=== PATIENT | female | born 1980 | race Hispanic/Latino ===

== ENCOUNTER 2024-01-02 11:02 | Inpatient (IN) | payer SELFPAY ==
[2024-01-02 11:41] LABS: #Basophils 0.03 10x3/uL (0.0-0.2); %Basophils 0.5 % (0.0-1.0); %Eosinophils 0.6 % (0.0-10.0); %Lymphocytes 14.3 % (21.0-51.0); %Monocytes 7.8 % (0.0-10.0); %Neutrophils 76.5 % (42.0-75.0); Hematocrit 27.9 % (36.0-47.0); Hemoglobin 8.4 g/dL (12.0-16.0); Mean Corpuscular HGB CONC 30.1 g/dL (32.0-36.0); Mean Corpuscular Hemoglobin 22.6 pg (27.0-31.0); Mean Platelet Volume 10.6 fL (7.4-10.4); Platelet Count 206 10x3/uL (130-400); RBC Distribution Width 16.4 % (11.5-14.5); Red Blood Cell (RBC) Count 3.72 mill/uL (4.20-5.40)
[2024-01-02 11:50] LABS: BHCG - Serum Negative (NEGATIVE); Pregs Control Background? CLEAR/WHITE (CLR/WHITE); Pregs Control Bar Appear? YES (CONTROL BAR)
[2024-01-02 11:57] LABS: ALT (SGPT) 36 U/L (8-55); AST (SGOT) 35 U/L (5-34); Albumin 3.8 g/dL (3.5-5.0); Alkaline Phosphatase 63 U/L (40-110); Anion Gap 10 mmol/L (10-20); BUN (Urea Nitrogen) 11 mg/dL (7.0-18.7); Bilirubin, Total 0.8 mg/dL (0.2-1.2); Calc. Creatinine Clearance 0 mL/min (70-130); Calcium 8.6 mg/dL (7.8-10.44); Carbon Dioxide 23 mmol/L (22-29); Chloride 107 mmol/L (98-107); Estimated GFR 112; Globulin 2.9 g/dL (2.4-3.5); Glucose 134 mg/dL (70-105); Potassium 3.4 mmol/L (3.5-5.1); Protein, Total 6.7 g/dL (6.0-8.3); Sodium 137 mmol/L (136-145)
[2024-01-02 12:32] LABS: Troponin I 0.784 ng/mL (< 0.028)
[2024-01-02] MEDS ORDERED: Boostrix 0.5 ML (Tdap) VIAL (>/=7 yrs of age) ONE (12:57)
[2024-01-02] MEDS ORDERED: Aspirin Chewable 81 MG TAB ONE (12:57)
[2024-01-02] MEDS ORDERED: Enoxaparin 80 MG (0.8 mL) SYRINGE ONE (13:29)
[2024-01-02] MEDS ORDERED: Ibuprofen 200 MG TAB PO PRN (14:08)
[2024-01-02] MEDS ORDERED: Senokot S 8.6-50 MG TAB PO PRN (14:08)
[2024-01-02 14:37] LABS: Cardiac Risk 3.3 (Less than 4.5)
[2024-01-02] MEDS ORDERED: Iron Sucrose Complex 200 MG in Sodium Chloride 0.9% 100 ML IVPB SCH (16:00)
[2024-01-02 16:51] VITALS: BMI 28.7
[2024-01-02 16:53] LABS: Troponin I 0.704 ng/mL (< 0.028)
[2024-01-02] MEDS: Sodium Chloride 0.9% 1,000 ML IV SCH (17:05)
[2024-01-02] MEDS: Carvedilol 3.125 MG TAB PO SCH (17:08)
[2024-01-02] MEDS: Sodium Ferric Gluconate 250 MG in Sodium Chloride 0.9% 250 ML 250 ML IVPB SCH (17:57)
[2024-01-02 19:46] LABS: Troponin I 0.687 ng/mL (< 0.028)
[2024-01-02] MEDS ORDERED: Enoxaparin 80 MG (0.8 mL) SYRINGE SC SCH (21:00)
[2024-01-02] MEDS: Famotidine 20 MG TAB PO SCH (21:12)
[2024-01-03 05:05] LABS: #Basophils Less than 0.03 10x3/uL (0.0-0.2); %Basophils 0.2 % (0.0-1.0); %Eosinophils 1.5 % (0.0-10.0); %Lymphocytes 20.4 % (21.0-51.0); %Monocytes 9.4 % (0.0-10.0); %Neutrophils 68.1 % (42.0-75.0); Hemoglobin 7.6 g/dL (12.0-16.0); Mean Corpuscular HGB CONC 30.4 g/dL (32.0-36.0); Mean Corpuscular Hemoglobin 23.3 pg (27.0-31.0); Mean Corpuscular Volume 76.7 fL (78.0-98.0); Mean Platelet Volume 10.9 fL (7.4-10.4); Platelet Count 192 10x3/uL (130-400); RBC Distribution Width 16.6 % (11.5-14.5); Red Blood Cell (RBC) Count 3.26 mill/uL (4.20-5.40)
[2024-01-03] MEDS: Potassium Chloride 20 MEQ TAB PO SCH (09:14)
[2024-01-03] MEDS: Aspirin Chewable 81 MG TAB PO SCH (09:14)
[2024-01-03] MEDS ORDERED: Regadenoson 0.4 MG/5 ML SYRINGE ONE (12:27)
[2024-01-03] MEDS: Sodium Ferric Gluconate 250 MG in Sodium Chloride 0.9% 250 ML 250 ML IVPB SCH (15:22)
[2024-01-03] MEDS ORDERED: Sodium Ferric Gluconate 250 MG in Sodium Chloride 0.9% 250 ML 250 ML IVPB SCH (17:00)
[2024-01-03] MEDS ORDERED: Communication Order-Pharmacy FS SCH (17:00)
[2024-01-04 05:05] LABS: #Basophils 0.04 10x3/uL (0.0-0.2); %Basophils 0.5 % (0.0-1.0); %Eosinophils 2.8 % (0.0-10.0); %Lymphocytes 23.3 % (21.0-51.0); %Monocytes 8.5 % (0.0-10.0); %Neutrophils 64.1 % (42.0-75.0); Hematocrit 27.5 % (36.0-47.0); Hemoglobin 8.3 g/dL (12.0-16.0); Mean Corpuscular HGB CONC 30.2 g/dL (32.0-36.0); Mean Corpuscular Hemoglobin 22.7 pg (27.0-31.0); Mean Corpuscular Volume 75.1 fL (78.0-98.0); Mean Platelet Volume 10.7 fL (7.4-10.4); Platelet Count 228 10x3/uL (130-400); RBC Distribution Width 16.6 % (11.5-14.5); Red Blood Cell (RBC) Count 3.66 mill/uL (4.20-5.40)
[2024-01-04 05:21] LABS: Anion Gap 11 mmol/L (10-20); BUN (Urea Nitrogen) 7 mg/dL (7.0-18.7); Calc. Creatinine Clearance 111 mL/min (70-130); Calcium 8.7 mg/dL (7.8-10.44); Carbon Dioxide 25 mmol/L (22-29); Chloride 107 mmol/L (98-107); Estimated GFR 110; Glucose 89 mg/dL (70-105); Magnesium 1.9 mg/dL (1.6-2.6); Potassium 3.6 mmol/L (3.5-5.1); Sodium 139 mmol/L (136-145)
[2024-01-04 05:24] LABS: Phosphorus 3.3 mg/dL (2.3-4.7)
[2024-01-04] MEDS: Magnesium 2 GM/50 ML(in water) 2 GM in Premix 1 BAG IVPB SCH (09:57)
[2024-01-04] MEDS ORDERED: Iopamidol 370 76% 100 ML VIAL ONE (10:51)
[2024-01-04] MEDS ORDERED: Heparin 10,000 UNITS/ 10 ML VIAL ONE (12:24)
[2024-01-04] MEDS ORDERED: fentaNYL 50 mcg/mL 1 mL Vial ONE (12:44)
[2024-01-04] MEDS ORDERED: Midazolam HCl 2 mg/2 ml Vial ONE (12:44)
[2024-01-04] MEDS: Acetaminophen 325 MG TAB PO PRN (16:03)
[2024-01-04] MEDS: Potassium Bicarbonate/Cit Ac 20 MEQ TAB PO SCH ×2 (16:05→18:00)
[2024-01-04] MEDS ORDERED: Atropine Sulfate 1 mg/10 ml Syringe IVP PRN (16:29)
[2024-01-04] MEDS ORDERED: Atropine Sulfate 1 mg/10 ml Syringe IVP SCH (16:30)
[2024-01-04 16:52] LABS: #Basophils 0.05 10x3/uL (0.0-0.2); %Basophils 0.5 % (0.0-1.0); %Eosinophils 1.6 % (0.0-10.0); %Lymphocytes 30.6 % (21.0-51.0); %Monocytes 9.4 % (0.0-10.0); %Neutrophils 55.9 % (42.0-75.0); Hematocrit 30.5 % (36.0-47.0); Hemoglobin 9.3 g/dL (12.0-16.0); Mean Corpuscular HGB CONC 30.5 g/dL (32.0-36.0); Mean Corpuscular Hemoglobin 23.6 pg (27.0-31.0); Mean Corpuscular Volume 77.4 fL (78.0-98.0); Mean Platelet Volume 11.1 fL (7.4-10.4); Platelet Count 287 10x3/uL (130-400); RBC Distribution Width 16.7 % (11.5-14.5); Red Blood Cell (RBC) Count 3.94 mill/uL (4.20-5.40)
[2024-01-04 17:07] LABS: Anion Gap 15 mmol/L (10-20); BUN (Urea Nitrogen) 6 mg/dL (7.0-18.7); Calc. Creatinine Clearance 108 mL/min (70-130); Calcium 8.4 mg/dL (7.8-10.44); Carbon Dioxide 20 mmol/L (22-29); Chloride 107 mmol/L (98-107); Estimated GFR 109; Glucose 128 mg/dL (70-105); Magnesium 2.5 mg/dL (1.6-2.6); Potassium 3.1 mmol/L (3.5-5.1); Sodium 139 mmol/L (136-145)
[2024-01-04] MEDS ORDERED: Electrolyte Replacement Protocol 1 EACH FS SCH (17:26)
[2024-01-04] MEDS: ALPRAZolam 0.25 MG TAB PO SCH (20:12)
[2024-01-04] MEDS: EPINEPHrine 1 MG/10 ML Abboject SYRINGE IVP SCH (20:13)
[2024-01-04] MEDS: NS 0.9% w/ 40 MEQ KCL 1,000 ML IV SCH (20:13)
[2024-01-04 22:47] LABS: Hemoglobin 8.5 g/dL (12.0-16.0)
[2024-01-04] MEDS: Potassium Chloride 20 MEQ TAB PO SCH (23:19)
[2024-01-05 06:09] LABS: #Basophils 0.03 10x3/uL (0.0-0.2); %Basophils 0.4 % (0.0-1.0); %Lymphocytes 15.5 % (21.0-51.0); %Monocytes 10.1 % (0.0-10.0); %Neutrophils 70.4 % (42.0-75.0); Hematocrit 28.4 % (36.0-47.0); Hemoglobin 8.5 g/dL (12.0-16.0); Mean Corpuscular HGB CONC 29.9 g/dL (32.0-36.0); Mean Corpuscular Hemoglobin 22.7 pg (27.0-31.0); Mean Corpuscular Volume 75.7 fL (78.0-98.0); Mean Platelet Volume 10.8 fL (7.4-10.4); Platelet Count 240 10x3/uL (130-400); RBC Distribution Width 17.2 % (11.5-14.5); Red Blood Cell (RBC) Count 3.75 mill/uL (4.20-5.40)
[2024-01-05 06:25] LABS: Anion Gap 11 mmol/L (10-20); BUN (Urea Nitrogen) 8 mg/dL (7.0-18.7); Calc. Creatinine Clearance 111 mL/min (70-130); Calcium 8.6 mg/dL (7.8-10.44); Carbon Dioxide 23 mmol/L (22-29); Chloride 109 mmol/L (98-107); Estimated GFR 110; Glucose 83 mg/dL (70-105); Potassium 4.8 mmol/L (3.5-5.1); Sodium 138 mmol/L (136-145)
[2024-01-05] MEDS: Prenatal Vitamin 1 TAB PO SCH (21:04)
[2024-01-06 08:22] VITALS: BP 138/74; TEMP 98.2
== END 2024-01-06 11:18 | disposition home or self-care (01) | DRG 287 ==
LOC: ERS 11:02 → ERHOLD 13:41 → 2NO 16:37 → CCU 01-04 16:36 → 2NO 01-05 15:21
PROVIDERS: ADMIT Hospitalist; ATTEND Internal Medicine
PROC: 4A023N7 Measurement of Cardiac Sampling and Pressure, Left Heart, Percutaneous Approach (ICD-10-PCS; principal; 2024-01-04)
PROC: B2111ZZ Fluoroscopy of Multiple Coronary Arteries using Low Osmolar Contrast (ICD-10-PCS; 2024-01-04)
PROC: B2151ZZ Fluoroscopy of Left Heart using Low Osmolar Contrast (ICD-10-PCS; 2024-01-04)
DX: R55 Syncope and collapse (principal); I24.89 Other forms of acute ischemic heart disease; L76.32 Postprocedural hematoma of skin and subcutaneous tissue following other procedure; E86.0 Dehydration; D50.9 Iron deficiency anemia, unspecified; N92.0 Excessive and frequent menstruation with regular cycle; F41.9 Anxiety disorder, unspecified; E87.6 Hypokalemia; Z79.899 Other long term (current) drug therapy
CPT/HCPCS: 36415; 70450; 71045; 76936; 78452; 80048; 80053; 80061; 82728; 83540; 83550; 83735; 84100; 84443; 84484; 84703; 85025; 86850; 86900; 86901; 90471; 90715; 93005; 93017; 93306; 93458; 94760; 96372; 99152; 99153; A9502; C1769; J1644; J1650; J2250; J2785; J2916; J3010; J3475; J3480; J7050; Q9967